=== PATIENT | male | born 1960 | race Asian ===

== ENCOUNTER 2025-02-07 08:16 | Outpatient (AMB) | payer OTHER, SELFPAY ==
--- NOTE | 2025-02-07 08:20 | MHC.PC.OV ---
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 by: Self / Same As Patient Allergies No Known Allergies Allergy (Verified 02/07/25 08:21) Tobacco use date assessed: 02/07/25 Fall risk assessment: No Falls in past year Last assessed Fall Risk: 02/07/25 Dental Screening Dental Screen Date: 02/07/25 Did you have a dental visit in the last 12 months?: Yes Did you have a dental problem in the last 6 months where you did not have access to dental care?: No Was dental information given to patient?: Patient has dentist HPI HPI Comments History of Present Illness Details History of Present Illness The patient is a 64-year-old male presenting for the establishment of care and management of chronic health issues. Essential Hypertension: - History of high blood pressure, treated with medications. Current systolic blood pressures are between 130-140 mmHg. Hyperlipidemia: - Cholesterol issues now controlled through medication. History of Ischemic Stroke: - Undetected initially; revealed through MRI when vision and facial symptoms developed. Benign Prostatic Hyperplasia: - Care transferred due to relocation; awaiting follow-up with a [place] urologist. Glaucoma and Cataract: - Both conditions require follow-up, with ophthalmology and retinal specialists. Health Maintenance - Colonoscopy screening discussed; Cologuard test option considered and selected. - Baseline labs planned: CBC, CMP, A1c, lipid panel, vitamin D level. - Blood pressure monitoring due to history of stroke and ischemic events. Review of Systems - Eyes: Reports history of vision issues, current diagnosis of glaucoma and cataract. - Neurological: Denies any current residual weakness post-stroke. 10-point ROS reviewed and negative except as noted in HPI Allergies Medications - Valsartan 160 mg for hypertension - Rosuvastatin 20 mg for hyperlipidemia - Clopidogrel 75 mg, generic Plavix - Aspirin 81 mg - Eye drops for glaucoma Medication History - Past use of antihypertensive and cholesterol medications with continued compliance. 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 - Recently moved to [place] from [place] due to job changes. Physical Exam General: No apparent distress. Alert and oriented x 3. Head:Normocephalic, atraumatic Eyes: Pupils equal, round, and reactive to light. Cataract developing and glaucoma in the left eye. Extraocular movements intact Throat: Oropharynx clear. Mucus membranes moist Neck: Supple. No left anterior descending artery distention. No jugular vein distention. No bruit. Cardiovascular: Regular rate and rhythm. Normal S1 and S2. Pulse is low at 45. murmurs, rubs, or gallops Lungs: Clear to auscultation bilaterally. Breath sounds equal bilaterally. No rales, ronchi, or wheezes. Abdomen: Non-tender. Non-distended. Bowel sounds auscultated. No hepatosplenomegaly. No mass/rebound/guarding Extremities: No clubbing, cyanosis, and edema. 2+ pulses Neuro: Central nerves II-XII grossly intact. Motor/sensory intact. Reflexes 2. Gait normal Skin: Warm, dry, and intact. No rash. Discussion Notes I discussed with the patient the importance of maintaining close monitoring of his blood pressure and lipid levels given the history of ischemic stroke and current medication regimen. We reviewed the options for colorectal cancer screening, and he opted for the non-invasive Cologuard test over a colonoscopy. It was stressed that a colonoscopy might still be necessary depending on results. We talked about establishing care with a local strip mill operator and urologist to continue regular followup. The benefits and limitations of telehealth were also discussed, emphasizing the importance of [id number] consultations for detailed discussions of medical results. The need for updated lab work to evaluate renal function, liver function, and vitamin D status was discussed and ordered for completion today. We addressed his heart rate being consistently low and discussed the possibility of further cardiac evaluation. Plan 1. Essential (primary) hypertension I10 - Maintain antihypertensive medication. - Adjust treatment as needed for better blood pressure management. 2. Hyperlipidemia, unspecified E78.5 - Sustained use of current statin therapy. - Periodic lipid evaluations. 3. Personal history of transient ischemic attack (TIA), and cerebral infarction without residual deficits Z86.73 - Ensure proper antiplatelet therapy. - Close follow-up on cerebrovascular health. 4. Benign prostatic hyperplasia without lower urinary tract symptoms N40.0 - Obtain urological follow-up locally. 5. Unspecified glaucoma H40.9 - Transition care to a local strip mill operator for continuity. 6. Unspecified cataract H26.9 - Ophthalmology consultation for ongoing assessment; monitor for potential treatment needs. Treatment Summary The patient is a 64-year-old male with a history of essential hypertension. He remains under treatment with antihypertensive therapy, statins for hyperlipidemia, and antiplatelet therapy, aiming to prevent recurrent cerebrovascular events given his ischemic stroke history. Anticapatory Guidance Patient Instructions - Follow up on referrals for local specialists in ophthalmology and urology. - Participate in lab testing for baseline evaluation today. - Choose and complete Cologuard screening as preferred for colorectal cancer prevention. - Continue prescribed medications as directed. - Schedule a follow-up visit to discuss lab results and ongoing management. - Maintain regular blood pressure checks and log readings for review in next visit. [facility] Medical History (Updated 02/07/25 @ 08:52 by Bunny Zuinga MA) Benign essential hypertension Dyslipidemia Screening for malignant neoplasm of colon Benign prostate hyperplasia Vitreous hemorrhage Screening for cardiovascular condition H/O TIA (transient ischemic attack) and stroke Vitamin D deficiency Vitamin B12 deficiency (non anemic) Family History (Updated 02/07/25 @ 08:32 by Bunny Zuniga MA) Mother Mini stroke Dementia Father High blood pressure Stroke Social History (Updated 02/07/25 @ 08:23 by Bunny Zuniga MA) Housing: Apartment Alcohol intake: current Alcohol intake frequency: does not drink Patient Tobacco Use Status: Never used Tobacco service: No Current occupational status: employed Cognitive needs: No Hearing needs: No Vision needs: Yes (rx glasses) Questionnaire PHQ-9 Over the last 2 weeks, how often have you been bothered by any of the following problems? 1. Little interest or pleasure in doing things: not at all 2. Feeling down, depressed, or hopeless: not at all 3. Trouble falling or staying asleep, or sleeping too much: not at all 4. Feeling tired or having little energy: not at all 5. Poor appetite or overeating: not at all 6. Feeling bad about yourself - or that you are a failure or have let yourself or your family down: not at all 7. Trouble concentrating on things, such as reading the newspaper or watching television: not at all 8. Moving or speaking so slowly that other people could have noticed. Or the opposite - being so fidgety or restless that you have been moving around a lot more than usual: not at all 9. Thoughts that you would be better off or of hurting yourself in some way: not at all Total score: 0 Depression Screening Interpretation: Negative Depression Screening Done: Yes Source: Developed by Drs. Roddy Welsh, Odalis Esparza, Yoan Castro and colleagues, with an educational natividad from [employer]. Thrive Questionnaire Date Thrive assessed: 02/07/25 I am a: Patient What is your living situation today?: I have a steady place to live Within the past 12 months, did the food you bought not last and you didn't have the money to get more?: Never true Within the past 12 months, did you worry whether your food would run out before you got money to buy more?: Never true Do you have trouble paying for medicines?: No Do you have trouble getting transportation to medical appointments?: No Do you have trouble paying your heating and electricity bill?: No Do you have trouble taking care of your child, family member or friend?: No Do you have trouble with day-to-day activities such as bathing, preparing meals, shopping, managing finances, etc.?: No Are you currently unemployed and looking for a job?: No Are you interested in more education?: No Please select the resources that you would like help with: None Currently or been in a relationship where the following occur: No concerns reported THRIVE Score: 0 AUDIT C Alcohol Use Questionnaire (AUDIT-C) 1. How often do you have a drink containing alcohol?: Never 3. How often do you have six or more drinks on one occasion?: Never Total Score: 0 EULALIO-7 AMB Questionnaire EULALIO-7 Date EULALIO - 7 assessed: 02/07/25 Feeling nervous, anxious, or on edge: 0 = Not at all Not being able to stop or control worryin = Not at all Worrying too much about different things: 0 = Not at all Trouble relaxin = Not at all Being so restless that it is hard to sit still: 0 = Not at all Becoming easily annoyed or irritable: 0 = Not at all Feeling afraid as if something awful might happen: 0 = Not at all Total EULALIO-7 score (0-4 normal; 5-9 mild; 10-14 moderate; 15-21 severe): 0 Source: Developed by Drs. Roddy Welsh, Odalis Esparza, Yoan Castro and colleagues, with an educational natividad from [employer]. Physical exam (Primary Care) Tobacco/Smoking Status: Tobacco use Status Patient Tobacco Use Status Never used Tobacco 02/07/25 08:23 Depression Screening Interpretation: Negative Thrive Assessment: Date of Thrive Assessment Date Thrive assessed 02/07/25 02/07/25 01:25 Currently or been in a relationship where the following occur: No concerns reported Coding Level of Care Code New Pt Level 3 (18040) Diagnoses Establishing care with new doctor, encounter for Z76. Routine lab draw Z01.89 Counseling, unspecified Z71.9 Encounter for screening, unspecified Z13.9 Screening for HIV (human immunodeficiency virus) Z11.4 Screening for diabetes mellitus Z13.1 Screening for depression Z13.31 Hypertension screen Z13.6 Elevated blood pressure reading R03.0 Bradycardia R00.1 History of stroke Z86.73 Retinal vascular disease H35.00 Enlarged prostate N40.0 Hyperlipidemia, unspecified hyperlipidemia type E78.5 Hyperlipidemia type: unspecified Assessment & Plan Assessment & Plan (1) Establishing care with new doctor, encounter for: Code(s): Z76.89 - Persons encountering health services in other specified circumstances (2) Routine lab draw: Code(s): Z01.89 - Encounter for other specified special examinations (3) Counseling, unspecified: Code(s): Z71.9 - Counseling, unspecified (4) Encounter for screening, unspecified: Code(s): Z13.9 - Encounter for screening, unspecified (5) Screening for HIV (human immunodeficiency virus): Code(s): Z11.4 - Encounter for screening for human immunodeficiency virus [HIV] (6) Screening for diabetes mellitus: Code(s): Z13.1 - Encounter for screening for diabetes mellitus (7) Screening for depression: Code(s): Z13.31 - Encounter for screening for depression (8) Hypertension screen: Code(s): Z13.6 - Encounter for screening for cardiovascular disorders (9) Elevated blood pressure reading: Code(s): R03.0 - Elevated blood-pressure reading, without diagnosis of hypertension (10) Bradycardia: Code(s): R00.1 - Bradycardia, unspecified (11) History of stroke: Code(s): Z86.73 - Personal history of transient ischemic attack (TIA), and cerebral infarction without residual deficits (12) Retinal vascular disease: Code(s): H35.00 - Unspecified background retinopathy (13) Enlarged prostate: Code(s): N40.0 - Benign prostatic hyperplasia without lower urinary tract symptoms (14) Hyperlipidemia: Code(s): E78.5 - Hyperlipidemia, unspecified Qualifiers: Hyperlipidemia type: unspecified Qualified Code(s): E78.5 - Hyperlipidemia, unspecified Plan Orders: Orders Complete Blood Count Auto Diff Today Z13.9 - Encounter for screening, unspecified, Z76.89 - Persons encountering health services in other specified circumstances Comprehensive Met. Panel Today Z13.9 - Encounter for screening, unspecified, Z76.89 - Persons encountering health services in other specified circumstances Hepatitis B Surface Antibody Today Z13.9 - Encounter for screening, unspecified, Z76.89 - Persons encountering health services in other specified circumstances Hepatitis C Antibody Today Z13.9 - Encounter for screening, unspecified, Z76.89 - Persons encountering health services in other specified circumstances HIV Ab/Ag Today Z13.9 - Encounter for screening, unspecified, Z76.89 - Persons encountering health services in other specified circumstances Lipid Panel Today Z13.9 - Encounter for screening, unspecified, Z76.89 - Persons encountering health services in other specified circumstances Hemoglobin A1c Today Z13.9 - Encounter for screening, unspecified, Z76.89 - Persons encountering health services in other specified circumstances Hepatitis B Surface Antigen Today Z13.9 - Encounter for screening, unspecified, Z76.89 - Persons encountering health services in other specified circumstances TSH reflex Free T4 Today Z13.9 - Encounter for screening, unspecified, Z76.89 - Persons encountering health services in other specified circumstances UA CC w/rflx Micro + Cult Today Z13.9 - Encounter for screening, unspecified, Z76.89 - Persons encountering health services in other specified circumstances Vitamin D 1,25 dihydroxy Today Z13.9 - Encounter for screening, unspecified, Z76.89 - Persons encountering health services in other specified circumstances Referrals Ophthalmology Referral H26.9 - Unspecified cataract, H40.9 - Unspecified glaucoma Cologuard Test Z12.11 - Encounter for screening for malignant neoplasm of colon, Z12.12 - Encounter for screening for malignant neoplasm of rectum
[2025-02-07 08:32] VITALS: BP 140/78; PULSE 45; RESP 16; TEMP 36.3; O2SAT 99; BMI 22.5
--- OUTSIDE RECORDS SUMMARY | 2025-02-07 09:12 | XMS_ITS | Clinical Summary ---
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 Active clopidogreL (PLAVIX) 75 mg tablet clopidogrel 75 mg tablet TAKE ONE (1) TABLET(S) BY MOUTH DAILY. Active rosuvastatin (CRESTOR) 10 mg tablet rosuvastatin 10 mg tablet TAKE ONE (1) TABLET(S) BY MOUTH DAILY. 7 Active aspirin 81 mg capsule 7 Active Active Problems Problem Noted Date Diagnosed Date Benign essential hypertension 10/07/2023 Resolved Problems Problem Noted Date Diagnosed Date Resolved Date Cervical radiculopathy 04/26/201510/06 Neck pain 04/26/2015 10/07/2023 Weakness 04/26/2015 10/07/2023 Social History Tobacco Use Types Packs/Day Years Used Date Smoking Tobacco: Never Smokeless Tobacco: Never Tobacco Cessation:Counseling Given: Not Answered Alcohol Use Standard Drinks/Week Comments Never 0 (1 standard drink = 0.6 oz pur e alcohol) Sex and Gender Information Value Date Recorded Sex Assigned at Not on file Legal Sex Male 8:56 PM PST Gender Identity Male 10/17/2022 7:09 AM PDT Sexual Orientation Not on file Last Filed Vital Signs Vital Sign Reading Time Taken Comments Blood Pressure 131/74 10/01/2024 8:59 AM CDT Pulse 52 10/01/2024 8:59 AM CDT Temperature 36.3 C (97.3 F) 05/17/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 Respiratory Rate - - Oxygen Saturation - - Inhaled Oxygen Concentration - - Weight - - Height - - Body Mass Index - - Plan of Treatment Upcoming Encounters Date Type Department Care Team (Late st Contact Info) Description 04/08/2025 9:00 AM 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 Office Visit [facility] [id number] [facility] [address] [place] [id number] [place]on Od[place] [address] [facility] [address] [place] [address] Health Maintenance Due Date Last Done Comments Dental X-Ray: Full Mouth 05/18/2024 05/17/2021 Dental X-Ray: Panoramic 05/18/2024 05/17/2021 Dental Oral Exam 04/04/2025 10/01/2024, , 10/06/2023, Additional history exists Dental Prophylaxis 04/04/2025 10/01/2024, 1 06/12/2023, 10/06/2023, Additional history exists Dental X-Ray: Bitewings 04/04/2025 10/01/2024 Procedures Procedure Name Priority Date/Time Associated Diagnosis Comments PROPHYLAXIS - ADULT Routine 10/01/2024 9 :00 AM CDT Encounter for dental examination and cleaning without abnormal findings PERIODIC ORAL EVALUATION - ESTABLISHED PATIENT Routine 10/01/2024 9:00 AM CDT Encounter for dental examination and cleaning without abnormal findings PANORAMIC RADIOGRAPHIC IMAGE Routine 05/17/2021 3:15 PM 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
--- OUTSIDE RECORDS SUMMARY | 2025-02-07 09:12 | XMS_ITS | Encounter Summary ---
Author Organization [facility] Health Address [address] [place] [address] Care Team Providers Care Flue Lining Dipper Name Role Phone Unavailable Primary Care Provider Unavailabl e Prior Encounters Date Type Department Care Team Description 10/01/2024 9:00 AM CDT Office Visit [facility] [address] [phone] Encounter for dental examination and cleaning without abnormal findings (Primary Dx) 10/01/2024 9:00 AM CDT Office Visit [facility] [address] [phone] Doni Lynn DDS Encounter for dental examination and cleaning without abnormal findings (Primary Dx) 04/12/2024 4:00 PM MARINE OIL TERMINAL SUPERINTENDENT Office Visit [facility] [address] [phone] Fatimah Lozano RDH Encounter for dental examination and cleaning without abnormal findings (Primary Dx) 04/12/2024 4:00 PM MARINE OIL TERMINAL SUPERINTENDENT Office Visit [facility] [address] [phone] Doni Lynn DDS Encounter for dental examination and cleaning without abnormal findings (Primary Dx) 10/06/2023 3:00 PM CDT Office Visit [facility] [address] [phone] Desiree Li RDH Encounter for dental examination and cleaning without abnormal findings (Primary Dx) 10/06/2023 3:00 PM CDT Office Visit [facility] [address] [phone] Doni Lynn DDS Encounter for dental examination and cleaning without abnormal findings (Primary Dx) 04/03/2023 3:30 PM MARINE OIL TERMINAL SUPERINTENDENT Office Visit [facility] [address] [phone] Doni Lynn DDS 10/24/2022 2:45 PM CDT Office Visit [facility] [address] [phone] Doni Lynn DDS 05/17/2021 3:15 PM MARINE OIL TERMINAL SUPERINTENDENT Office Visit [facility] [address] [phone] Doni Lynn DDS 06/14/2019 Converted 13x Documents [facility] 281, [facility] [address] [place] [phone] <No scans attached> Last Filed Vital Signs Vital Sign Reading Time Taken Comments Blood Pressure 131/74 10/01/2024 8:59 AM CDT Pulse 52 10/01/2024 8:59 AM CDT Temperature 36.3 C (97.3 F) 05/17/2021 3:32 PM MARINE OIL TERMINAL SUPERINTENDENT Respiratory Rate - - Oxygen Saturation - - Inhaled Oxygen Concentration - - Weight - - Height - - Body Mass Index - - Plan of Treatment Upcoming Encounters Date Type Department Care Team (Late st Contact Info) Description 04/08/2025 9:00 AM MARINE OIL TERMINAL SUPERINTENDENT Office Visit [facility] [address] [phone] Zenon Odell [address] [address] Procedures Procedure Name Priority Date/Time Associated Diagnosis Comments LR ANTIBACT IRR/QUAD Routine 10/01/2024 9:00 AM CDT LL ANTIBACT IRR/QUAD Routine 10/01/2024 9:00 AM CDT UL ANTIBACT IRR/QUAD Routine 10/01/2024 9:00 AM CDT UR ANTIBACT IRR/QUAD Routine 10/01/2024 9:00 AM CDT PROPHYLAXIS - ADULT Routine 10/01/2024 9 :00 AM CDT Encounter for dental examination and cleaning without abnormal findings ORAL HYGIENE INSTRUCTIONS Routine 2024 9:00 AM CDT INTRAORAL PHOTO Routine 10/01/2024 9:00 AM CDT INTRAORAL PHOTO Routine 10/01/2024 9:00 AM CDT INTRAORAL PHOTO Routine 10/01/2024 9:00 AM CDT INTRAORAL PHOTO Routine 10/01/2024 9:00 AM CDT BITEWINGS - FOUR RADIOGRAPHIC IMAGES Routine 10/01/2024 9:00 AM CDT ADDITIONAL X-RAY Routine 10/01/2024 9:00 AM CDT ADDITIONAL X-RAY Routine 10/01/2024 9:00 AM CDT ADDITIONAL X-RAY Routine 10/01/2024 9:00 AM CDT ADDITIONAL X-RAY Routine 10/01/2024 9:00 AM CDT ADDITIONAL X-RAY Routine 10/01/2024 9:00 AM CDT SINGLE X-RAY Routine 10/01/2024 9:00 AM CDT PERIODIC ORAL EVALUATION - ESTABLISHED PATIENT Routine 10/01/2024 9:00 AM CDT Encounter for dental examination and cleaning without abnormal findings PROPHYLAXIS - ADULT Routine 04/12/2024 4 :00 PM MARINE OIL TERMINAL SUPERINTENDENT Encounter for dental examination and cleaning without abnormal findings ORAL HYGIENE INSTRUCTIONS Routine 2023 4:00 PM MARINE OIL TERMINAL SUPERINTENDENT PERIODIC ORAL EVALUATION - ESTABLISHED PATIENT Routine 04/12/2024 4:00 PM MARINE OIL TERMINAL SUPERINTENDENT Encounter for dental examination and cleaning without abnormal findings LL ANTIBACT IRR/QUAD Routine 10/06/2023 3:00 PM CDT Encounter for dental examination and cleaning without abnormal findings LR ANTIBACT IRR/QUAD Routine 10/06/2023 3:00 PM CDT Encounter for dental examination and cleaning without abnormal findings UL ANTIBACT IRR/QUAD Routine 10/06/2023 3:00 PM CDT Encounter for dental examination and cleaning without abnormal findings UR ANTIBACT IRR/QUAD Routine 10/06/2023 3:00 PM CDT Encounter for dental examination and cleaning without abnormal findings ORAL HYGIENE INSTRUCTIONS Routine 2023 3:00 PM CDT Encounter for dental examination and cleaning without abnormal findings TOPICAL APPLICATION OF FLUORIDE VARNISH Routine 10/06/2023 3:00 PM CDT Encounter for dental examination and cleaning without abnormal findings PROPHYLAXIS - ADULT Routine 10/06/2023 3 :00 PM CDT Encounter for dental examination and cleaning without abnormal findings INTRAORAL PHOTO Routine 10/06/2023 3:00 PM CDT INTRAORAL PHOTO Routine 10/06/2023 3:00 PM CDT INTRAORAL PHOTO Routine 10/06/2023 3:00 PM CDT ADDITIONAL X-RAY Routine 10/06/2023 3:00 PM CDT INTRAORAL PHOTO Routine 10/06/2023 3:00 PM CDT BITEWINGS - FOUR RADIOGRAPHIC IMAGES Routine 10/06/2023 3:00 PM CDT ADDITIONAL X-RAY Routine 10/06/2023 3:00 PM CDT ADDITIONAL X-RAY Routine 10/06/2023 3:00 PM CDT ADDITIONAL X-RAY Routine 10/06/2023 3:00 PM CDT SINGLE X-RAY Routine 10/06/2023 3:00 PM CDT ADDITIONAL X-RAY Routine 10/06/2023 3:00 PM CDT PERIODIC ORAL EVALUATION - ESTABLISHED PATIENT Routine 10/06/2023 3:00 PM CDT Encounter for dental examination and cleaning without abnormal findings PROPHYLAXIS - ADULT Routine 04/03/2023 3 :30 PM MARINE OIL TERMINAL SUPERINTENDENT PERIODIC ORAL EVALUATION - ESTABLISHED PATIENT Routine 04/03/2023 3:30 PM MARINE OIL TERMINAL SUPERINTENDENT ORAL HYGIENE INSTRUCTIONS Routine 2022 3:30 PM MARINE OIL TERMINAL SUPERINTENDENT TOPICAL APPLICATION OF FLUORIDE VARNISH Routine 04/03/2023 3:30 PM MARINE OIL TERMINAL SUPERINTENDENT PERIODIC ORAL EVALUATION - ESTABLISHED PATIENT Routine 10/24/2022 2:45 PM CDT PROPHYLAXIS - ADULT Routine 10/24/2022 2 :45 PM CDT TOPICAL APPLICATION OF FLUORIDE VARNISH Routine 10/24/2022 2:45 PM CDT ORAL HYGIENE INSTRUCTIONS Routine 2022 2:45 PM CDT LR ANTIBACT IRR/QUAD Routine 05/17/2021 3:15 PM MARINE OIL TERMINAL SUPERINTENDENT LL ANTIBACT IRR/QUAD Routine 05/17/2021 3:15 PM MARINE OIL TERMINAL SUPERINTENDENT UL ANTIBACT IRR/QUAD Routine 05/17/2021 3:15 PM MARINE OIL TERMINAL SUPERINTENDENT UR ANTIBACT IRR/QUAD Routine 05/17/2021 3:15 PM MARINE OIL TERMINAL SUPERINTENDENT ORAL HYGIENE INSTRUCTIONS Routine 2020 3:15 PM MARINE OIL TERMINAL SUPERINTENDENT TOPICAL APPLICATION OF FLUORIDE VARNISH Routine 05/17/2021 3:15 PM MARINE OIL TERMINAL SUPERINTENDENT PROPHYLAXIS - ADULT Routine 05/17/2021 3 :15 PM MARINE OIL TERMINAL SUPERINTENDENT INTRAORAL PHOTO Routine 05/17/2021 3:15 PM MARINE OIL TERMINAL SUPERINTENDENT INTRAORAL PHOTO Routine 05/17/2021 3:15 PM MARINE OIL TERMINAL SUPERINTENDENT INTRAORAL PHOTO Routine 05/17/2021 3:15 PM MARINE OIL TERMINAL SUPERINTENDENT INTRAORAL PHOTO Routine 05/17/2021 3:15 PM MARINE OIL TERMINAL SUPERINTENDENT PANORAMIC RADIOGRAPHIC IMAGE Routine 05/17/2021 3:15 PM MARINE OIL TERMINAL SUPERINTENDENT INTRAORAL - COMPREHENSIVE SERIES OF RADIOGRAPHIC IMAGES Routine 05/17/2021 3:15 PM MARINE OIL TERMINAL SUPERINTENDENT COMPREHENSIVE ORAL EVALUATION - NEW OR ESTABLISHED PATIENT Routine 05/17/2021 3:15 PM MARINE OIL TERMINAL SUPERINTENDENT Visit Diagnoses Diagnosis Start Date Encounter for dental examination and cleaning without abnormal findings 10/06/2023 Encounter for dental examination and cleaning without abnormal findings 10/06/2023 Encounter for dental examination and cleaning without abnormal findings 04/12/2024 Encounter for dental examination and cleaning without abnormal findings 04/12/2024 Encounter for dental examination and cleaning without abnormal findings 10/01/2024 Encounter for dental examination and cleaning without abnormal findings 10/01/2024 Insurance [facility]
== END 2025-02-07 09:03 | disposition home or self-care (01) ==
LOC: HO.HMCFMS 08:17
PROVIDERS: PCP Student in an Organized Health Care Education/Training Program; Visit Provider Student in an Organized Health Care Education/Training Program
DX: Z00.00 Encounter for general adult medical examination without abnormal findings (principal); R00.1 Bradycardia, unspecified; E78.5 Hyperlipidemia, unspecified; H35.00 Unspecified background retinopathy; R03.0 Elevated blood-pressure reading, without diagnosis of hypertension; N40.0 Benign prostatic hyperplasia without lower urinary tract symptoms; Z71.9 Counseling, unspecified; Z13.9 Encounter for screening, unspecified; Z11.4 Encounter for screening for human immunodeficiency virus [HIV]; Z13.1 Encounter for screening for diabetes mellitus; Z13.6 Encounter for screening for cardiovascular disorders; Z86.73 Personal history of transient ischemic attack (TIA), and cerebral infarction without residual deficits

== ENCOUNTER 2025-02-07 08:16 | Outpatient (REF) | payer OTHER, SELFPAY ==
[2025-02-07 13:48] LABS: MANUAL DIFF FLAG NO
[2025-02-07 13:52] LABS: Hematocrit 41.9 % (42.0-52.0); Hemoglobin 13.9 g/dl (14.0-18.0); Imm Gran Abs Auto 0.01 X10*3/uL (0.00-0.03); Imm Gran Pct Auto 0.2 % (0.0-0.4); Lymphocytes Absolute Auto 1.4 X10*3/uL (1.2-4.9); Mean Corpuscular HGB Conc 33.2 g/dl (31.0-36.0); Mean Corpuscular Hemoglobin 29.7 pg (27.0-33.0); Mean Corpuscular Volume 89.5 fL (80.0-98.0); NRBC Abs Auto 0.000 X10*3/uL (0.0-0.012); NRBC Pct Auto 0.0 /100WBC (0.0-0.2); Platelet Count 201 X10*3/uL (160-400); Red Blood Count 4.68 X10*6/uL (4.60-5.80); White Blood Count 5.1 X10*3/uL (4.8-10.8)
[2025-02-07 14:02] LABS: Appearance Urine Clear; Glucose Urine UA Negative (Negative); PH 5.5 (5.0-9.0); Specific Gravity - Urine 1.025 (1.005-1.025)
[2025-02-07 14:13] LABS: Alanine Aminotransferase 21 U/L (0-40); Albumin Level 4.6 g/dL (3.5-5.0); Alkaline Phosphatase 51 U/L (39-117); Anion Gap 10 (12-20); Aspartate Amino Transferase 32 U/L (5-37); Blood Urea Nitrogen 20 mg/dL (9-16); Calcium 9.1 mg/dL (8.4-10.2); Carbon Dioxide 28 mmol/L (22-29); Chloride 108 mmol/L (96-108); Cholesterol 139 mg/dL (<200); Estimated Glomerular Filt Rate > 60; HDL Cholesterol 46 mg/dL (>40); Potassium 4.2 mmol/L (3.3-5.1); Sodium 142 mmol/L (135-145); Total Protein 7.5 g/dL (6.5-8.0); Triglycerides 81 mg/dL (<150)
[2025-02-07 14:33] LABS: Hemoglobin A1C 148.2663 umol/L
[2025-02-08 08:18] LABS: HBS Num1 44.26 mIU/mL (0-7.99); HBsAGNum1 0.47 S/CO (0.00-0.99); HIV Num 1 0.05 S/CO (0.00-0.99); Hepatitis B Surface Antigen Negative (Negative); ~HepC Num1 1.09 S/CO (0.00-0.79); ~Hepatitis B Surface Antibody REACTIVE (Nonreactive); ~Hepatitis C Antibody Reactive (Nonreactive)
[2025-02-14 14:38] LABS: VITAMIN D (1,25 OH) D3 40 pg/mL; Vit D (1,25-Dihydroxy) Total 40 pg/mL (18-72); Vitamin D (1,25 OH) D2 <8 pg/mL
== END 2025-02-07 08:17 | disposition home or self-care (01) ==
LOC: HO.HKASLDS 08:16
PROVIDERS: PCP Student in an Organized Health Care Education/Training Program; Visit Provider Student in an Organized Health Care Education/Training Program
DX: Z76.89 Persons encountering health services in other specified circumstances (principal); Z13.9 Encounter for screening, unspecified; Z01.89 Encounter for other specified special examinations; Z71.9 Counseling, unspecified; Z11.4 Encounter for screening for human immunodeficiency virus [HIV]; Z13.1 Encounter for screening for diabetes mellitus; Z13.31 Encounter for screening for depression; Z13.6 Encounter for screening for cardiovascular disorders; R03.0 Elevated blood-pressure reading, without diagnosis of hypertension; R00.1 Bradycardia, unspecified; H35.00 Unspecified background retinopathy; N40.0 Benign prostatic hyperplasia without lower urinary tract symptoms; E78.5 Hyperlipidemia, unspecified; Z86.73 Personal history of transient ischemic attack (TIA), and cerebral infarction without residual deficits
CPT/HCPCS: 36415; 80053; 80061; 81003; 82652; 83036; 84443; 85025; 86706; 86803; 87340; 87389; 96127

== ENCOUNTER 2025-02-14 08:38 | Outpatient (AMB) | payer OTHER, SELFPAY ==
--- NOTE | 2025-02-14 08:40 | A.OFFPC_ITS ---
Vital Signs 02/14/25 08:44 Height 5 ft 8.66 in Weight 152 lb 6 oz BMI 22.7 BP 110/60 Blood Pressure Location Lt brachial Position Sitting Respiration 16 Pulse 50 Pulse Source Pulse Oximeter Temp 97.7 F Temp Source Oral Pulse Oximetry (%) 98 Oxygen Delivery Method Room Air Intake Visit Reasons: 1 week follow up Intake Note: establish care with PCP and also need meds for hypertension and high cholesterol request lab work. Care Management Associate Required: No Accompanied by: Self / Same As Patient Allergies No Known Allergies Allergy (Verified 02/14/25 08:44) Tobacco use date assessed: 02/07/25 Fall risk assessment: No Falls in past year Last assessed Fall Risk: 02/07/25 Dental Screening Dental Screen Date: 02/07/25 Did you have a dental visit in the last 12 months?: Yes Did you have a dental problem in the last 6 months where you did not have access to dental care?: No Was dental information given to patient?: Patient has dentist HPI HPI Comments History of Present Illness Details History of Present Illness The patient is a 64-year-old male presenting with a positive hepatitis C test result. Hepatitis C infection: - The patient tested positive for hepati tis C, with plans to assess viral load and liver condition through ultrasound. - No history of blood transfusions or ne edle sharing was reported. Hyperbilirubinemia: - The patient's bilirubin level is sligh tly elevated at 1.2 mg/dL, above the normal cutoff of 1.0 mg/dL. Review of Systems 10-point ROS reviewed and negative excep t as noted in HPI Past Medical History Health Maintenance - Lipid profile: Total cholesterol 139 m g/dL, LDL 77 mg/dL, HDL 46 mg/dL, triglycerides 81 mg/dL. - TSH levels normal. - Urinalysis normal. Physical Exam General: Well-appearing, in no acute distress. Vital signs: Within normal limits. HEENT: Normocephalic, atraumatic. PERRLA, EOMI. Conjunctiva clear, sclera an icteric. Oropharynx clear, mucous membranes moist. TMs intact bilaterally. Neck: Supple, no lymphadenopathy, no thyromegaly, no JVD or carotid bruits. Cardiovascular: RRR, normal S1/S2, no murmurs, rubs, or gallops. Peripheral pulses 2+ and symmetric. No edema. Respiratory: Lungs clear to auscultation bilaterally, no wheezes, rales, or rhonchi. Normal effort. Abdomen: Soft, non-tender, non-distended. Normoactive bowel sounds. No hepatosplenomegaly, no masses. MSK: Full range of motion, no joint swelling or deformity. Normal gait. Skin: Warm, dry, intact. No rashes, lesions, or pallor. Neuro: Alert and oriented x3. Cranial nerves II-XII intact. Strength 5/5 throughout. Sensation intact. Reflexes 2+ symmetric. Normal coordination and gait. Psych: Appropriate mood and affect. Normal judgment and insight. Plan 1. Unspecified viral hepatitis C without hepatic coma B19.20 - Plan to determine viral load and perfo rm liver ultrasound to assess liver condition. - Further management will depend on the genotype and treatment options available. 2. Other disorders of bilirubin metaboli sm E80.6 - Monitor bilirubin levels in conjunctio n with hepatitis C management. 3. bradycardia ecg, asymptomatic Discussion Notes I discussed with the patient the positive hepatitis C result and the need for further evaluation through viral load testing and liver ultrasound. We talked about the potential for treatment based on the genotype of the virus. The patient was informed about the need for follow-up appointments to discuss results and management options. Patient Instructions - Schedule an appointment for a liver ul trasound at the designated center. - Follow up for blood tests to determine hepatitis C viral load. - Return for a follow-up appointment to discuss test results and treatment options. [facility] Medical History Benign essential hypertension Dyslipidemia Screening for malignant neoplasm of colon Benign prostate hyperplasia Vitreous hemorrhage Screening for cardiovascular condition H/O TIA (transient ischemic attack) and stroke Vitamin D deficiency Vitamin B12 deficiency (non anemic) Family History Mother Mini stroke Dementia Father High blood pressure Stroke Social History Housing: Apartment Alcohol intake: current Alcohol intake frequency: does not drink Patient Tobacco Use Status: Never used Tobacco service: No Current occupational status: employed Cognitive needs: No Hearing needs: No Vision needs: Yes (rx glasses) Questionnaire Thrive Questionnaire Date Thrive assessed: 02/07/25 I am a: Patient What is your living situation today?: I have a steady place to live Within the past 12 months, did the food you bought not last and you didn't have the money to get more?: Never true Within the past 12 months, did you worry whether your food would run out before you got money to buy more?: Never true Do you have trouble paying for medicines?: No Do you have trouble getting transportation to medical appointments?: No Do you have trouble paying your heating and electricity bill?: No Do you have trouble taking care of your child, family member or friend?: No Do you have trouble with day-to-day activities such as bathing, preparing meals, shopping, managing finances, etc.?: No Are you currently unemployed and looking for a job?: No Are you interested in more education?: No Currently or been in a relationship where the following occur: No concerns reported THRIVE Score: 0 EULALIO-7 AMB Questionnaire EULALIO-7 Date EULALIO - 7 assessed: 02/07/25 Source: Developed by Drs. Roddy Welsh, Odalis Esparza, Yoan Castro and colleagues, with an educational natividad from [employer] Physical exam (Primary Care) Vital Signs: Last Vital Signs Temp 97.7 F 02/14/25 08:44 Pulse 50 02/14/25 08:44 Resp 16 02/14/25 08:44 BP 110/60 02/14/25 08:44 Pulse Ox 98 02/14/25 08:44 Oxygen Delivery Method Room Air 02/14/25 08:44 BMI result Body Mass Index 22.7 Tobacco/Smoking Status: Tobacco use Status Tobacco use date assessed 02/07/25 02/14/25 08:41 Patient Tobacco Use Status Never used Tobacco 02/14/25 08:41 Thrive Assessment: Date of Thrive Assessment Date Thrive assessed 02/07/25 02/14/25 08:41 Currently or been in a relationship where the following occur: No concerns reported Coding Level of Care Code Est Pt Level 3 (70246) Diagnoses Encounter to discuss test results Z71.2 Hepatitis C antibody positive R76.8 Prediabetes R73.03 Elevated bilirubin R17 Bradycardia R00.1 Assessment & Plan Assessment & Plan (1) Encounter to discuss test results: Code(s): Z71.2 - Person consulting for explanation of examination or test findings (2) Hepatitis C antibody positive: Code(s): R76.8 - Other specified abnormal immunological findings in serum (3) Prediabetes: Code(s): R73.03 - Prediabetes (4) Elevated bilirubin: Code(s): R17 - Unspecified jaundice (5) Bradycardia: Code(s): R00.1 - Bradycardia, unspecified Plan Orders: Orders Hepatitis C Viral Load Today R76.8 - Other specified abnormal immunological findings in serum US abdomen limited Today R76.8 - Other specified abnormal immunological findings in serum ECG 12 lead EKG Today R00.1 - Bradycardia, unspecified
[2025-02-14 08:44] VITALS: BP 110/60; PULSE 50; RESP 16; TEMP 36.5; O2SAT 98; BMI 22.7
--- OUTSIDE RECORDS SUMMARY | 2025-02-14 10:00 | XMS_ITS | Encounter Summary ---
Author Organization [facility] Health Address [address] [place] [address] Care Team Providers Care Director Decision Support Name Role Phone Unavailable Primary Care Provider Unavailabl e Prior Encounters Date Type Department Care Team Description 10/01/2024 9:00 AM CDT Office Visit [facility] [address] [phone] Encounter for dental examination and cleaning without abnormal findings (Primary Dx) 10/01/2024 9:00 AM CDT Office Visit [facility] [address] [phone] Doni Lynn DDS Encounter for dental examination and cleaning without abnormal findings (Primary Dx) 04/12/2024 4:00 PM EXTRA HAND Office Visit [facility] [address] [phone] Fatimah Lozano RDH Encounter for dental examination and cleaning without abnormal findings (Primary Dx) 04/12/2024 4:00 PM EXTRA HAND Office Visit [facility] [address] [phone] Doni Lynn DDS Encounter for dental examination and cleaning without abnormal findings (Primary Dx) 10/06/2023 3:00 PM CDT Office Visit [facility] [address] [phone] Desiree Li RDH Encounter for dental examination and cleaning without abnormal findings (Primary Dx) 10/06/2023 3:00 PM CDT Office Visit [facility] [address] [phone] Doni Lynn DDS Encounter for dental examination and cleaning without abnormal findings (Primary Dx) 04/03/2023 3:30 PM EXTRA HAND Office Visit [facility] [address] [phone] Doni Lynn DDS 10/24/2022 2:45 PM CDT Office Visit [facility] [address] [phone] Doni Lynn DDS 05/17/2021 3:15 PM EXTRA HAND Office Visit [facility] [address] [phone] Doni Lynn DDS 06/14/2019 Converted 13x Documents [facility] 281, [facility] [address] [place] [phone] <No scans attached> Last Filed Vital Signs Vital Sign Reading Time Taken Comments Blood Pressure 131/74 10/01/2024 8:59 AM CDT Pulse 52 10/01/2024 8:59 AM CDT Temperature 36.3 C (97.3 F) 05/17/2021 3:32 PM EXTRA HAND Respiratory Rate - - Oxygen Saturation - - Inhaled Oxygen Concentration - - Weight - - Height - - Body Mass Index - - Plan of Treatment Upcoming Encounters Date Type Department Care Team (Late st Contact Info) Description 04/08/2025 9:00 AM EXTRA HAND Office Visit [facility] [address] [phone] Zenon Odell [address] [address] Procedures Procedure Name Priority Date/Time Associated Diagnosis [...] - ADULT Routine 04/12/2024 4 :00 PM EXTRA HAND Encounter for dental examination and cleaning without abnormal findings ORAL HYGIENE INSTRUCTIONS Routine 2023 4:00 PM EXTRA HAND PERIODIC ORAL EVALUATION - ESTABLISHED PATIENT Routine 04/12/2024 4:00 PM EXTRA HAND Encounter for dental examination and cleaning without [...] - ADULT Routine 04/03/2023 3 :30 PM EXTRA HAND PERIODIC ORAL EVALUATION - ESTABLISHED PATIENT Routine 04/03/2023 3:30 PM EXTRA HAND ORAL HYGIENE INSTRUCTIONS Routine 2022 3:30 PM EXTRA HAND TOPICAL APPLICATION OF FLUORIDE VARNISH Routine 04/03/2023 3:30 PM EXTRA HAND PERIODIC ORAL EVALUATION - ESTABLISHED PATIENT Routine 10/24/2022 2:45 PM CDT PROPHYLAXIS - ADULT Routine 10/24/2022 2 :45 PM CDT TOPICAL APPLICATION OF FLUORIDE VARNISH Routine 10/24/2022 2:45 PM CDT ORAL HYGIENE INSTRUCTIONS Routine 2022 2:45 PM CDT LR ANTIBACT IRR/QUAD Routine 05/17/2021 3:15 PM EXTRA HAND LL ANTIBACT IRR/QUAD Routine 05/17/2021 3:15 PM EXTRA HAND UL ANTIBACT IRR/QUAD Routine 05/17/2021 3:15 PM EXTRA HAND UR ANTIBACT IRR/QUAD Routine 05/17/2021 3:15 PM EXTRA HAND ORAL HYGIENE INSTRUCTIONS Routine 2020 3:15 PM EXTRA HAND TOPICAL APPLICATION OF FLUORIDE VARNISH Routine 05/17/2021 3:15 PM EXTRA HAND PROPHYLAXIS - ADULT Routine 05/17/2021 3 :15 PM EXTRA HAND INTRAORAL PHOTO Routine 05/17/2021 3:15 PM EXTRA HAND INTRAORAL PHOTO Routine 05/17/2021 3:15 PM EXTRA HAND INTRAORAL PHOTO Routine 05/17/2021 3:15 PM EXTRA HAND INTRAORAL PHOTO Routine 05/17/2021 3:15 PM EXTRA HAND PANORAMIC RADIOGRAPHIC IMAGE Routine 05/17/2021 3:15 PM EXTRA HAND INTRAORAL - COMPREHENSIVE SERIES OF RADIOGRAPHIC IMAGES Routine 05/17/2021 3:15 PM EXTRA HAND COMPREHENSIVE ORAL EVALUATION - NEW OR ESTABLISHED PATIENT Routine 05/17/2021 3:15 PM EXTRA HAND Visit Diagnoses Diagnosis Start Date Encounter for [...] and cleaning without abnormal findings 10/01/2024 Insurance [facility]
--- OUTSIDE RECORDS SUMMARY | 2025-02-14 10:00 | XMS_ITS | Clinical Summary ---
Author Organization [facility] Health Address [address] [place] [address] Care Team Providers Care Tire Man Name Role Phone Unavailable Primary Care Provider [...] 36.3 C (97.3 F) 05/17/2021 3:32 PM HOUSE DECORATOR Respiratory Rate - - Oxygen Saturation - - Inhaled Oxygen Concentration - - Weight - - Height - - Body Mass Index - - Plan of Treatment Upcoming Encounters Date Type Department Care Team (Late st Contact Info) Description 04/08/2025 9:00 AM HOUSE DECORATOR Office Visit [facility] [address] [facility] [address] [place] [phone] [place] [address] [facility] [address] [place] [address] Health Maintenance Due Date Last Done Comments [...] PANORAMIC RADIOGRAPHIC IMAGE Routine 05/17/2021 3:15 PM HOUSE DECORATOR INTRAORAL - COMPREHENSIVE SERIES OF RADIOGRAPHIC IMAGES Routine 05/17/2021 3:15 PM HOUSE DECORATOR from Last 3 Months or Most Recently Relevant to Health Maintenance Insurance [facility] [place] [facility] [place] PPO
== END 2025-02-14 09:07 | disposition home or self-care (01) ==
LOC: HO.HMCFMS 08:38
PROVIDERS: PCP Student in an Organized Health Care Education/Training Program; Visit Provider Student in an Organized Health Care Education/Training Program
DX: R76.8 Other specified abnormal immunological findings in serum (principal); R73.03 Prediabetes; R17 Unspecified jaundice; R00.1 Bradycardia, unspecified

== ENCOUNTER 2025-02-14 08:38 | Outpatient (REF) | payer OTHER, SELFPAY ==
[2025-02-16 15:24] LABS: HCV Log PCR <1.18 NOT DETECTED Log IU/mL (NOT DETECTED); HepC Viral Load <15 NOT DETECTED IU/mL (NOT DETECTED)
== END 2025-02-14 08:39 | disposition home or self-care (01) ==
LOC: HO.HKASLDS 08:38
PROVIDERS: PCP Student in an Organized Health Care Education/Training Program; Visit Provider Student in an Organized Health Care Education/Training Program
DX: Z71.2 Person consulting for explanation of examination or test findings (principal); R76.8 Other specified abnormal immunological findings in serum; R00.1 Bradycardia, unspecified; R73.03 Prediabetes; R17 Unspecified jaundice
CPT/HCPCS: 36415; 87522